=== PATIENT | female | born 1985 | race Caucasian/White ===

== ENCOUNTER 2017-10-01 12:43 | Observation (INO) ==
[2017-10-01] MEDS: NS 1000 ML 1,000 ML IV SCH (14:43)
[2017-10-01] MEDS: PEPCID 20 MG IV PREMIX* 20 MG/50 ML BAG IV SCH ×2 (14:44→21:13)
[2017-10-01] MEDS: LEVSIN/MAALOX/LIDOC VISC PO PRN (14:44)
[2017-10-01] MEDS: PROTONIX INJ 40 MG VIAL IVP SCH ×2 (14:45→21:13)
[2017-10-01] MEDS: ZOFRAN INJ 4 MG VIAL IVP PRN (14:45)
[2017-10-01 15:01] LABS: BASOPHILS # (AUTO) 0.1 X10^3/uL (0.0-0.1); BASOPHILS % (AUTO) 0.7 % (0.2-1.0); EOSINOPHILS # (AUTO) 0.2 x10^3/uL (0.0-0.2); EOSINOPHILS % (AUTO) 2.3 % (0.9-2.9); HEMATOCRIT 39.9 % (36.0-47.0); LYMPHOCYTES # (AUTO) 1.7 X10^3/uL (1.3-2.9); LYMPHOCYTES % (AUTO) 19.5 % (21.0-51.0); MEAN CORPUSCULAR HEMOGLOBIN 30.6 pg (27.0-34.0); MEAN CORPUSCULAR VOLUME 87.4 fL (80.0-100.0); MEAN PLATELET VOLUME 9.2 fL (7.4-11.0); MONOCYTES # (AUTO) 0.6 x10^3/uL (0.3-0.8); MONOCYTES % (AUTO) 7.2 % (0.0-13.0); NEUTROPHILS # (AUTO) 6.2 x10^3/uL (2.2-4.8); NEUTROPHILS % (AUTO) 70.3 % (42.0-75.0); PLATELET COUNT 253 X10^3/uL (150.0-450.0); RED BLOOD COUNT 4.56 X10^6/uL (3.5-5.4); RED CELL DISTRIBUTION WIDTH 12.6 % (11.6-16.5); WHITE BLOOD COUNT 8.8 X10^3/uL (3.6-10.0)
[2017-10-01 15:03] VITALS: BMI 28.3
[2017-10-01 15:18] LABS: ALANINE AMINOTRANSFERASE 34 Units/L (12-78); ALBUMIN 4.2 g/dL (3.4-5.0); ALKALINE PHOSPHATASE 62 Units/L (46-116); ASPARTATE AMINO TRANSFERASE 22 Units/L (15-37); BLOOD UREA NITROGEN 11 mg/dL (7-18); CALCIUM 8.4 mg/dL (8.5-10.1); CARBON DIOXIDE 20.5 mmol/L (21-32); CHLORIDE 102 mmol/L (98-107); CREATININE 0.83 mg/dL (0.55-1.02); LIPASE 120 Units/L (73-393); SERUM PREGNANCY TEST, QUAL NEGATIVE <10 mIU/mL; SODIUM 138 mmol/L (136-145); TOTAL PROTEIN 7.9 g/dL (6.4-8.2); eGFR NON BLACK RACES > 60 (>60)
[2017-10-01] MEDS ORDERED: DEMEROL INJ ONE (15:20)
[2017-10-01] MEDS: DEMEROL INJ IVP PRN (15:24)
--- NOTE | 2017-10-01 15:28 | DR.UPDATE ---
H&P Update History and Physical Update: PRESENTED TODAY FOR ABDOMINAL PAIN, NAUSEA, AND VOMITING. PATIENT WAS ADMITTED FOR FURTHER EVALUATION AND TREATMENT. A H&P WAS COMPLETED PRIOR TO ADMISSION. PATIENT HAS BEEN SEEN AND EXAMINED WITH NO CHANGES NOTED TO H&P. Changes noted: NO Yes with the following:
[2017-10-01] MEDS ORDERED: K-LYTE EFFERVESCENT PO PRN (17:53)
[2017-10-01] MEDS ORDERED: POTASSIUM CHL 40 MEQ/NS 0.45% 500 ML IV PRN (17:53)
[2017-10-01] MEDS ORDERED: K-RIDER 10 MEQ/NS 100 ML 10 MEQ/100 ML BAG IV PRN (17:53)
[2017-10-01] MEDS ORDERED: POTASSIUM CHLORIDE LIQ 20 MEQ UDC PO PRN (17:53)
[2017-10-01] MEDS ORDERED: POTASSIUM CHL 60 MEQ/NS 0.45% 500 ML IV PRN (17:53)
--- NOTE | 2017-10-01 18:10 | US ---
Gallbladder sonogram Indication: Abdominal pain Comparison: None available Technique: Multiple portillo scale and color flow Doppler images of the right upper quadrant were obtaine d. Findings: The gallbladder fails to demonstrate evidence for cholelithiasis or layering sludge.No pericholecysti c fluid or gallbladder wall thickening can be observed. The common bile duct is unremarkable measuring 3 mm. The visualized liver demonstrates no focal hepatic lesion or abnormal echotexture. IMPRESSION: Normal gallbladder sonogram. Reported By:
[2017-10-01 18:47] LABS: BILIRUBIN,URINE NEGATIVE (NEGATIVE); BLOOD/HEMOGLOBIN,URINE NEGATIVE (NEGATIVE); GLUCOSE, URINE NEGATIVE (NEGATIVE); KETONES,URINE 3+ (NEGATIVE); LEUKOCYTE ESTERASE ,URINE 2+ (NEGATIVE); NITRITES,URINE NEGATIVE (NEGATIVE); PROTEIN,URINE NEGATIVE (NEGATIVE); UROBILINOGEN,URINE NORMAL (NORMAL)
[2017-10-01 19:00] LABS: APPEARANCE,URINE HAZY (CLEAR); BACTERIA,URINE 1+ /HPF (NEGATIVE); COLOR,URINE YELLOW (YELLOW); RBC,URINE 0-2 /HPF (NONE SEEN); SQUAMOUS EPITHELIAL CELL,UR MODERATE /HPF (NEGATIVE)
[2017-10-01] MEDS ORDERED: TYLENOL 325 MG TAB PO PRN (22:47)
[2017-10-02] MEDS: NS 1000 ML 1,000 ML IV SCH ×4 (02:00→20:58)
[2017-10-02 06:02] LABS: BASOPHILS % (AUTO) 0.5 % (0.2-1.0); EOSINOPHILS # (AUTO) 0.3 x10^3/uL (0.0-0.2); EOSINOPHILS % (AUTO) 4.6 % (0.9-2.9); HEMATOCRIT 33.4 % (36.0-47.0); HEMOGLOBIN 11.7 g/dL (12.0-16.0); LYMPHOCYTES # (AUTO) 2.1 X10^3/uL (1.3-2.9); LYMPHOCYTES % (AUTO) 36.9 % (21.0-51.0); MEAN CORPUSCULAR HEMOGLOBIN 30.9 pg (27.0-34.0); MEAN CORPUSCULAR VOLUME 88.4 fL (80.0-100.0); MEAN PLATELET VOLUME 9.5 fL (7.4-11.0); MONOCYTES # (AUTO) 0.5 x10^3/uL (0.3-0.8); MONOCYTES % (AUTO) 8.4 % (0.0-13.0); NEUTROPHILS # (AUTO) 2.9 x10^3/uL (2.2-4.8); NEUTROPHILS % (AUTO) 49.6 % (42.0-75.0); PLATELET COUNT 183 X10^3/uL (150.0-450.0); RED BLOOD COUNT 3.78 X10^6/uL (3.5-5.4); WHITE BLOOD COUNT 5.8 X10^3/uL (3.6-10.0)
[2017-10-02 06:20] LABS: ALANINE AMINOTRANSFERASE 24 Units/L (12-78); ALBUMIN 2.8 g/dL (3.4-5.0); ALKALINE PHOSPHATASE 44 Units/L (46-116); ASPARTATE AMINO TRANSFERASE 16 Units/L (15-37); BLOOD UREA NITROGEN 7 mg/dL (7-18); CALCIUM 7.9 mg/dL (8.5-10.1); CARBON DIOXIDE 21.5 mmol/L (21-32); CHLORIDE 109 mmol/L (98-107); COR CA(FOR HYPOALB) 8.9 mg/dL (8.5-10.1); CREATININE 0.67 mg/dL (0.55-1.02); SODIUM 141 mmol/L (136-145); TOTAL PROTEIN 5.6 g/dL (6.4-8.2); eGFR NON BLACK RACES > 60 (>60)
[2017-10-02] MEDS: PEPCID 20 MG IV PREMIX* 20 MG/50 ML BAG IV SCH ×2 (08:41→20:41)
[2017-10-02] MEDS: PROTONIX INJ 40 MG VIAL IVP SCH ×2 (08:41→20:41)
[2017-10-02] MEDS: CIPRO IV 400 MG PREMIX* 400 MG/200 ML IV.SOLN. IV SCH ×2 (09:48→20:41)
[2017-10-02] MEDS ORDERED: XYLOCAINE 2 % (PLAIN) ONE (13:17)
[2017-10-02] MEDS ORDERED: DIPRIVAN VIAL 20 ML ONE (13:17)
[2017-10-02] MEDS: LEVSIN/MAALOX/LIDOC VISC PO PRN (15:21)
[2017-10-02] MEDS: DEMEROL INJ IVP PRN (19:35)
[2017-10-02] MEDS: ZOFRAN INJ 4 MG VIAL IVP PRN (19:35)
[2017-10-02] MEDS ORDERED: PHENERGAN INJ 25 MG IVP PRN (20:40)
[2017-10-03 05:12] LABS: BASOPHILS % (AUTO) 0.6 % (0.2-1.0); EOSINOPHILS # (AUTO) 0.3 x10^3/uL (0.0-0.2); EOSINOPHILS % (AUTO) 5.8 % (0.9-2.9); HEMATOCRIT 33.3 % (36.0-47.0); HEMOGLOBIN 11.3 g/dL (12.0-16.0); LYMPHOCYTES # (AUTO) 1.8 X10^3/uL (1.3-2.9); LYMPHOCYTES % (AUTO) 36.9 % (21.0-51.0); MEAN CORPUSCULAR HEMOGLOBIN 30.5 pg (27.0-34.0); MEAN CORPUSCULAR HGB CONC 33.9 g/dL (33.0-35.0); MEAN CORPUSCULAR VOLUME 89.9 fL (80.0-100.0); MEAN PLATELET VOLUME 9.8 fL (7.4-11.0); MONOCYTES # (AUTO) 0.4 x10^3/uL (0.3-0.8); MONOCYTES % (AUTO) 8.7 % (0.0-13.0); NEUTROPHILS # (AUTO) 2.4 x10^3/uL (2.2-4.8); PLATELET COUNT 161 X10^3/uL (150.0-450.0); RED CELL DISTRIBUTION WIDTH 12.9 % (11.6-16.5); WHITE BLOOD COUNT 4.9 X10^3/uL (3.6-10.0)
[2017-10-03 05:31] LABS: ALANINE AMINOTRANSFERASE 22 Units/L (12-78); ALBUMIN 2.7 g/dL (3.4-5.0); ALKALINE PHOSPHATASE 42 Units/L (46-116); ASPARTATE AMINO TRANSFERASE 16 Units/L (15-37); BLOOD UREA NITROGEN 3 mg/dL (7-18); CALCIUM 7.8 mg/dL (8.5-10.1); CARBON DIOXIDE 24.2 mmol/L (21-32); CHLORIDE 110 mmol/L (98-107); COR CA(FOR HYPOALB) 8.8 mg/dL (8.5-10.1); CREATININE 0.65 mg/dL (0.55-1.02); SODIUM 142 mmol/L (136-145); TOTAL PROTEIN 5.4 g/dL (6.4-8.2); eGFR NON BLACK RACES > 60 (>60)
[2017-10-03] MEDS: PROTONIX INJ 40 MG VIAL IVP SCH ×2 (09:02→20:02)
[2017-10-03] MEDS: PEPCID 20 MG IV PREMIX* 20 MG/50 ML BAG IV SCH ×2 (09:02→20:01)
[2017-10-03] MEDS: NS 1000 ML 1,000 ML IV SCH ×2 (09:02→21:28)
[2017-10-03] MEDS: CIPRO IV 400 MG PREMIX* 400 MG/200 ML IV.SOLN. IV SCH ×2 (09:02→20:02)
--- NOTE | 2017-10-03 11:25 | NM ---
Nuclear medicine HIDA scan with ejection fraction Indication: Nausea and vomiting with right upper quadrant pain Comparison: Ultrasound dated 10/01/2017 Technique: Multiple scintigraphic images of the abdomen were obtained the intravenous administration of 5.5 mCi of technetium labeled Choletec. After oral administration of 8 oz of Ensure an estimated gallbladder ejection fraction was calculated based on the physiologic response of this infusion. Findings: Homogeneous uptake of radiotracer is seen throughout the liver. This intrabiliary ductal system is o bserved normally. The common hepatic and common bile duct grossly appear unremarkable with normal bi liary-bowel transit. The gallbladder is observed to fill normally. After oral administration of Ensure, a borderline low gallbladder ejection fraction of 33% (normal > 35%) is observed. IMPRESSION: 1. Normal hepatobiliary imaging scan. 2. Borderline decreased gallbladder ejection fraction. Reported By:
[2017-10-03] MEDS: DEMEROL INJ IVP PRN ×2 (14:36→22:31)
--- NOTE | 2017-10-03 22:25 | PCM.PROG ---
Progress Note - Progress Note for Day of Date: 10/02/17 - Subjective Subjective: WAS ADMITTED FOR ABDOMINAL PAIN AND REFRACTORY NAUSEA AND VOMITING. TODAY, SHE IS ALERT AND ORIENTED, LYING IN BED ON MORNING ROUNDS. SHE CONTINUES WITH DIFFUSE PAIN AND NAUSEA. ON EXAMINATION, HEART IS REGULAR IN RATE AND RHYTHM. BILATERAL LUNGS ARE CLEAR TO AUSCULTATION. ABDOMEN IS ROUND, SOFT, AND NOTED WITH MODERATE, DIFFUSE TENDERNESS TO PALPATION. BOWEL SOUNDS ARE NORMAL IN ALL QUADRANTS. HER VITALS TODAY ARE 98.0-72-18-98%-103/58. LABS WERE OBTAINED. ABNORMAL LAB VALUES INCLUDE THE FOLLOWING: HGB 11.7, HCT 33.4, CHLORIDE 109, CALCIUM 7.69, ALK PHOS 44, TOTAL PROTEIN 5.6, ALBUMIN 2.8. A URINALYSIS THAT WAS OBTAINED ON ADMISSION REVEALED WBC 3-5, RBC 0-2, BACTERIA 1+ , LEUKOCYTES 2+. GALLBLADDER US OBTAINED ON ADMISSION REVEALED NORMAL GALLBLADDER SONOGRAM. WE HAVE CONSULTED , [employer]. HE PLANS FOR AN EGD TODAY. WE ARE IN AGREEMENT WITH PLAN. WE WILL ALSO OBTAIN A HIDA SCAN IN THE MORNING. OTHERWISE, WE WILL START CIPRO 400MG IV Q12H. WE PLAN TO FOLLOW UP WITH AM LABS AND CONTINUE TO MONITOR PATIENT. - Past Medical Family Social History Past Med/Fam/Surg Hx: No changes since H&P Allergies: Allergies No Known Drug Allergies Allergy (Verified 10/01/17 15:13) - Review of Systems ROS: No change since H&P - Vital Signs and I&O's Vital Signs: Temperature 97.7 F Pulse Rate [Left Brachial] 58 Pulse Rate [Brachial] 61 Respiratory Rate 16 Blood Pressure [Left Arm] 117/68 O2 Sat by Pulse Oximetry 100 Intake and Output: Intake & Output 10/01/17 10/02/17 10/03/17 10/04/17 11:59 11:59 11:59 11:59 Intake Total 600 / 600 1600 / 1600 1660 / 1660 Output Total 1100 / 1100 Balance -500 / -500 1600 / 1600 1660 / 1660 - Physical Exam Oriented: Normal Eyes: Normal Ear: Normal Nose: Normal Throat: Normal Respiratory: Normal Cardiovascular: Normal. negative: S3, S4, Murmur : Normal Auscultation: Bowel Sounds: Normal Palpation: Normal Tenderness: Diffuse, Moderate. negative: Rebound, Guarding, Rigidity Skin: Normal Musculoskeletal: Normal Psychiatric: Normal Mood Description: Calm Affect: Normal Speech Pattern: Clear, Appropriate - Laboratory and Diagnostics Result Diagrams: 10/03/17 04:22 10/03/17 04:22 Labs: 10/01/17 18:16 Urine,Clean Catch Urine Culture - Final Laboratory WBC 4.9 X10^3/uL (3.6-10.0) 10/03/17 04:22 RBC 3.70 X10^6/uL (3.5-5.4) 10/03/17 04:22 Hgb 11.3 g/dL (12.0-16.0) L 10/03/17 04:22 Hct 33.3 % (36.0-47.0) L 10/03/17 04:22 MCV 89.9 fL (80.0-100.0) 10/03/17 04:22 MCH 30.5 pg (27.0-34.0) 10/03/17 04:22 MCHC 33.9 g/dL (33.0-35.0) 10/03/17 04:22 RDW 12.9 % (11.6-16.5) 10/03/17 04:22 Plt Count 161 X10^3/uL (150.0-450.0) 10/03/17 04:22 MPV 9.8 fL (7.4-11.0) 10/03/17 04:22 Neut % (Auto) 48.0 % (42.0-75.0) 10/03/17 04:22 Lymph % (Auto) 36.9 % (21.0-51.0) 10/03/17 04:22 [place] % (Auto) 8.7 % (0.0-13.0) 10/03/17 04:22 Eos % (Auto) 5.8 % (0.9-2.9) H 10/03/17 04:22 Baso % (Auto) 0.6 % (0.2-1.0) 10/03/17 04:22 Neut # (Auto) 2.4 x10^3/uL (2.2-4.8) 10/03/17 04:22 Lymph # (Auto) 1.8 X10^3/uL (1.3-2.9) 10/03/17 04:22 [place] # (Auto) 0.4 x10^3/uL (0.3-0.8) 10/03/17 04:22 Eos # (Auto) 0.3 x10^3/uL (0.0-0.2) H 10/03/17 04:22 Baso # (Auto) 0.0 X10^3/uL (0.0-0.1) 10/03/17 04:22 Absolute Nucleated RBC 0.1 /100WBC 10/03/17 04:22 Sodium 142 mmol/L (136-145) 10/03/17 04:22 Corrected Sodium TNP 10/03/17 04:22 Potassium 3.7 mmol/L (3.5-5.1) 10/03/17 04:22 Chloride 110 mmol/L (98-107) H 10/03/17 04:22 Carbon Dioxide 24.2 mmol/L (21-32) 10/03/17 04:22 BUN 3 mg/dL (7-18) L 10/03/17 04:22 Creatinine 0.65 mg/dL (0.55-1.02) 10/03/17 04:22 Est GFR (MDRD) Af Amer > 60 (>60) 10/03/17 04:22 Est GFR (MDRD) Non-Af > 60 (>60) 10/03/17 04:22 Glucose 74 mg/dL (65-99) 10/03/17 04:22 Calcium 7.8 mg/dL (8.5-10.1) L 10/03/17 04:22 Corrected Calcium 8.8 mg/dL (8.5-10.1) 10/03/17 04:22 Magnesium 1.8 mg/dL (1.7-2.9) 10/01/17 14:52 Total Bilirubin 0.30 mg/dL (0.2-1.0) 10/03/17 04:22 AST 16 Units/L (15-37) 10/03/17 04:22 ALT 22 Units/L (12-78) 10/03/17 04:22 Alkaline Phosphatase 42 Units/L (46-116) L 10/03/17 04:22 Total Protein 5.4 g/dL (6.4-8.2) L 10/03/17 04:22 Albumin 2.7 g/dL (3.4-5.0) L 10/03/17 04:22 Globulin 2.7 g/dL (2.5-4.5) 10/03/17 04:22 Albumin/Globulin Ratio 1.0 Ratio (1.1-2.1) L 10/03/17 04:22 Lipase 120 Units/L (73-393) 10/01/17 14:52 HCG, Qual Negative <10 mIU/mL 10/01/17 14:52 Specimen Type Clean catch urine 10/01/17 18:16 Urine Color Yellow (YELLOW) 10/01/17 18:16 Urine Appearance Hazy (CLEAR) 10/01/17 18:16 Urine pH 8.0 (5.0 - 8.0) 10/01/17 18:16 Ur Specific [place] 1.010 (1.000-1.030) 10/01/17 18:16 Urine Protein Negative (NEGATIVE) 10/01/17 18:16 Urine Glucose (UA) Negative (NEGATIVE) 10/01/17 18:16 Urine Ketones 3+ (NEGATIVE) 10/01/17 18:16 Urine Occult Blood Negative (NEGATIVE) 10/01/17 18:16 Urine Nitrite Negative (NEGATIVE) 10/01/17 18:16 Urine Bilirubin Negative (NEGATIVE) 10/01/17 18:16 Urine Urobilinogen Normal (NORMAL) 10/01/17 18:16 Ur Leukocyte Esterase 2+ (NEGATIVE) 10/01/17 18:16 Urine RBC 0-2 /HPF (NONE SEEN) 10/01/17 18:16 Urine WBC 3-5 /HPF (NONE SEEN) 10/01/17 18:16 Ur Squamous Epith Cells Moderate /HPF (NEGATIVE) 10/01/17 18:16 Urine Bacteria 1+ /HPF (NEGATIVE) 10/01/17 18:16 Ur Culture Indicated? Yes/culture set up 10/01/17 18:16 Tissue Pathology To follow 10/02/17 13:48 - Plan (1) Abdominal pain Status: Acute Qualifiers: Abdominal location: generalized Qualified Code(s): R10.84 - Generalized abdominal pain Plan: EGD TODAY, GI COCKTAIL, PEPCID IV, PROTONIX IV, DEMEROL IV, CONTINUE TO MONITOR (2) Refractory nausea and vomiting Status: Acute Plan: ZOFRAN IV, PHENERGAN IV, CONTINUE TO MONITOR (3) Urinary tract infection Status: Acute Qualifiers: Urinary tract infection type: acute cystitis Hematuria presence: without hematuria Qualified Code(s): N30.00 - Acute cystitis without hematuria Plan: CIPRO 400MG IV Q12H, CONTINUE TO MONITOR
--- NOTE | 2017-10-03 22:36 | PCM.PROG ---
Progress Note - Progress Note for Day of Date: 10/03/17 - Subjective Subjective: WAS ADMITTED FOR ABDOMINAL PAIN AND REFRACTORY NAUSEA AND VOMITING. TODAY, SHE IS ALERT AND ORIENTED, LYING IN BED ON MORNING ROUNDS. SHE CONTINUES WITH DIFFUSE PAIN AND NAUSEA, BUT REPORTS SLIGHT IMPROVEMENT SINCE YESTERDAY. ON EXAMINATION, HEART IS REGULAR IN RATE AND RHYTHM. BILATERAL LUNGS ARE CLEAR TO AUSCULTATION. ABDOMEN IS ROUND, SOFT, AND NOTED WITH MILD, DIFFUSE TENDERNESS TO PALPATION. BOWEL SOUNDS ARE NORMAL IN ALL QUADRANTS. HER VITALS TODAY ARE 98.4-52-16-100%-102/57. LABS WERE OBTAINED. SHE IS HEMODYNAMICALLY STABLE. GALLBLADDER US OBTAINED ON ADMISSION REVEALED NORMAL GALLBLADDER SONOGRAM. TOOK PATIENT DOWN FOR AN EGD YESTERDAY. EGD REVEALED EROSIVE GASTRITIC, ANTRAL GASTRIC ULCER WITH A CLEAN WHITE BASE, DISTAL ESOPHAGITIS WITH SLIGHTLY IRREGULAR Z-LINE. TODAY, WE WILL OBTAIN A HIDA SCAN. OTHERWISE, WE PLAN TO FOLLOW UP WITH AM LABS AND CONTINUE TO MONITOR PATIENT. - Past Medical Family Social History Past Med/Fam/Surg Hx: No changes since H&P Allergies: Allergies No Known Drug Allergies Allergy (Verified 10/01/17 15:13) - Review of Systems ROS: No change since H&P - Vital Signs and I&O's Vital Signs: Temperature 97.7 F Pulse Rate [Left Brachial] 58 Pulse Rate [Brachial] 61 Respiratory Rate 16 Blood Pressure [Left Arm] 117/68 O2 Sat by Pulse Oximetry 100 Intake and Output: Intake & Output 10/01/17 10/02/17 10/03/17 10/04/17 11:59 11:59 11:59 11:59 Intake Total 600 / 600 1600 / 1600 1660 / 1660 Output Total 1100 / 1100 Balance -500 / -500 1600 / 1600 1660 / 1660 - Physical Exam Oriented: Normal Eyes: Normal Ear: Normal Nose: Normal Throat: Normal Respiratory: Normal Cardiovascular: Normal. negative: S3, S4, Murmur : Normal Auscultation: Bowel Sounds: Normal Tenderness: Diffuse, Moderate. negative: Rebound, Guarding, Rigidity Skin: Normal Musculoskeletal: Normal Psychiatric: Normal Mood Description: Calm Affect: Normal Speech Pattern: Clear, Appropriate - Laboratory and Diagnostics Result Diagrams: 10/03/17 04:22 10/03/17 04:22 Labs: 10/01/17 18:16 Urine,Clean Catch Urine Culture - Final Laboratory WBC 4.9 X10^3/uL (3.6-10.0) 10/03/17 04:22 RBC 3.70 X10^6/uL (3.5-5.4) 10/03/17 04:22 Hgb 11.3 g/dL (12.0-16.0) L 10/03/17 04:22 Hct 33.3 % (36.0-47.0) L 10/03/17 04:22 MCV 89.9 fL (80.0-100.0) 10/03/17 04:22 MCH 30.5 pg (27.0-34.0) 10/03/17 04:22 MCHC 33.9 g/dL (33.0-35.0) 10/03/17 04:22 RDW 12.9 % (11.6-16.5) 10/03/17 04:22 Plt Count 161 X10^3/uL (150.0-450.0) 10/03/17 04:22 MPV 9.8 fL (7.4-11.0) 10/03/17 04:22 Neut % (Auto) 48.0 % (42.0-75.0) 10/03/17 04:22 Lymph % (Auto) 36.9 % (21.0-51.0) 10/03/17 04:22 [place] % (Auto) 8.7 % (0.0-13.0) 10/03/17 04:22 Eos % (Auto) 5.8 % (0.9-2.9) H 10/03/17 04:22 Baso % (Auto) 0.6 % (0.2-1.0) 10/03/17 04:22 Neut # (Auto) 2.4 x10^3/uL (2.2-4.8) 10/03/17 04:22 Lymph # (Auto) 1.8 X10^3/uL (1.3-2.9) 10/03/17 04:22 [place] # (Auto) 0.4 x10^3/uL (0.3-0.8) 10/03/17 04:22 Eos # (Auto) 0.3 x10^3/uL (0.0-0.2) H 10/03/17 04:22 Baso # (Auto) 0.0 X10^3/uL (0.0-0.1) 10/03/17 04:22 Absolute Nucleated RBC 0.1 /100WBC 10/03/17 04:22 Sodium 142 mmol/L (136-145) 10/03/17 04:22 Corrected Sodium TNP 10/03/17 04:22 Potassium 3.7 mmol/L (3.5-5.1) 10/03/17 04:22 Chloride 110 mmol/L (98-107) H 10/03/17 04:22 Carbon Dioxide 24.2 mmol/L (21-32) 10/03/17 04:22 BUN 3 mg/dL (7-18) L 10/03/17 04:22 Creatinine 0.65 mg/dL (0.55-1.02) 10/03/17 04:22 Est GFR (MDRD) Af Amer > 60 (>60) 10/03/17 04:22 Est GFR (MDRD) Non-Af > 60 (>60) 10/03/17 04:22 Glucose 74 mg/dL (65-99) 10/03/17 04:22 Calcium 7.8 mg/dL (8.5-10.1) L 10/03/17 04:22 Corrected Calcium 8.8 mg/dL (8.5-10.1) 10/03/17 04:22 Magnesium 1.8 mg/dL (1.7-2.9) 10/01/17 14:52 Total Bilirubin 0.30 mg/dL (0.2-1.0) 10/03/17 04:22 AST 16 Units/L (15-37) 10/03/17 04:22 ALT 22 Units/L (12-78) 10/03/17 04:22 Alkaline Phosphatase 42 Units/L (46-116) L 10/03/17 04:22 Total Protein 5.4 g/dL (6.4-8.2) L 10/03/17 04:22 Albumin 2.7 g/dL (3.4-5.0) L 10/03/17 04:22 Globulin 2.7 g/dL (2.5-4.5) 10/03/17 04:22 Albumin/Globulin Ratio 1.0 Ratio (1.1-2.1) L 10/03/17 04:22 Lipase 120 Units/L (73-393) 10/01/17 14:52 HCG, Qual Negative <10 mIU/mL 10/01/17 14:52 Specimen Type Clean catch urine 10/01/17 18:16 Urine Color Yellow (YELLOW) 10/01/17 18:16 Urine Appearance Hazy (CLEAR) 10/01/17 18:16 Urine pH 8.0 (5.0 - 8.0) 10/01/17 18:16 Ur Specific [place] 1.010 (1.000-1.030) 10/01/17 18:16 Urine Protein Negative (NEGATIVE) 10/01/17 18:16 Urine Glucose (UA) Negative (NEGATIVE) 10/01/17 18:16 Urine Ketones 3+ (NEGATIVE) 10/01/17 18:16 Urine Occult Blood Negative (NEGATIVE) 10/01/17 18:16 Urine Nitrite Negative (NEGATIVE) 10/01/17 18:16 Urine Bilirubin Negative (NEGATIVE) 10/01/17 18:16 Urine Urobilinogen Normal (NORMAL) 10/01/17 18:16 Ur Leukocyte Esterase 2+ (NEGATIVE) 10/01/17 18:16 Urine RBC 0-2 /HPF (NONE SEEN) 10/01/17 18:16 Urine WBC 3-5 /HPF (NONE SEEN) 10/01/17 18:16 Ur Squamous Epith Cells Moderate /HPF (NEGATIVE) 10/01/17 18:16 Urine Bacteria 1+ /HPF (NEGATIVE) 10/01/17 18:16 Ur Culture Indicated? Yes/culture set up 10/01/17 18:16 Tissue Pathology To follow 10/02/17 13:48 - Plan (1) Abdominal pain Status: Acute Qualifiers: Abdominal location: generalized Qualified Code(s): R10.84 - Generalized abdominal pain Plan: EGD TODAY, GI COCKTAIL, PEPCID IV, PROTONIX IV, DEMEROL IV, CONTINUE TO MONITOR (2) Refractory nausea and vomiting Status: Acute Plan: ZOFRAN IV, PHENERGAN IV, CONTINUE TO MONITOR (3) Urinary tract infection Status: Acute Qualifiers: Urinary tract infection type: acute cystitis Hematuria presence: without hematuria Qualified Code(s): N30.00 - Acute cystitis without hematuria Plan: CIPRO 400MG IV Q12H, CONTINUE TO MONITOR
[2017-10-04 05:16] LABS: BASOPHILS % (AUTO) 0.5 % (0.2-1.0); EOSINOPHILS # (AUTO) 0.4 x10^3/uL (0.0-0.2); EOSINOPHILS % (AUTO) 6.2 % (0.9-2.9); HEMATOCRIT 33.4 % (36.0-47.0); HEMOGLOBIN 11.5 g/dL (12.0-16.0); LYMPHOCYTES # (AUTO) 2.1 X10^3/uL (1.3-2.9); LYMPHOCYTES % (AUTO) 31.6 % (21.0-51.0); MEAN CORPUSCULAR HEMOGLOBIN 30.6 pg (27.0-34.0); MEAN CORPUSCULAR HGB CONC 34.5 g/dL (33.0-35.0); MEAN CORPUSCULAR VOLUME 88.8 fL (80.0-100.0); MONOCYTES # (AUTO) 0.5 x10^3/uL (0.3-0.8); MONOCYTES % (AUTO) 7.7 % (0.0-13.0); NEUTROPHILS # (AUTO) 3.6 x10^3/uL (2.2-4.8); PLATELET COUNT 164 X10^3/uL (150.0-450.0); RED BLOOD COUNT 3.76 X10^6/uL (3.5-5.4); WHITE BLOOD COUNT 6.7 X10^3/uL (3.6-10.0)
[2017-10-04 05:27] LABS: ALANINE AMINOTRANSFERASE 22 Units/L (12-78); ALBUMIN 2.8 g/dL (3.4-5.0); ALKALINE PHOSPHATASE 43 Units/L (46-116); ASPARTATE AMINO TRANSFERASE 15 Units/L (15-37); BLOOD UREA NITROGEN 3 mg/dL (7-18); CARBON DIOXIDE 23.5 mmol/L (21-32); CHLORIDE 109 mmol/L (98-107); CREATININE 0.66 mg/dL (0.55-1.02); SODIUM 141 mmol/L (136-145); TOTAL PROTEIN 5.5 g/dL (6.4-8.2); eGFR NON BLACK RACES > 60 (>60)
[2017-10-04 08:07] VITALS: BP 103/58
[2017-10-04] MEDS: CIPRO IV 400 MG PREMIX* 400 MG/200 ML IV.SOLN. IV SCH (08:14)
[2017-10-04] MEDS: PROTONIX INJ 40 MG VIAL IVP SCH (08:14)
[2017-10-04] MEDS: PEPCID 20 MG IV PREMIX* 20 MG/50 ML BAG IV SCH (08:14)
--- NOTE | 2017-10-22 23:07 | DR.CARTERD ---
- Discharge Summary for: Discharge Summary for Date of:: 10/04/17 - Admission Date Date of Admission: 10/01/17 - Admission Diagnoses Admission Diagnosis: (1) Abdominal pain (2) Refractory nausea and vomiting (3) Urinary tract infection - Discharge Date Discharge Date: 10/04/17 - Discharge Diagnoses Discharge Diagnosis: (1) Abdominal pain (2) Refractory nausea and vomiting (3) Urinary tract infection - Hospital Course Hospital Course: Ms. Adams presented to the hospital as a direct admission after a follow up visit in PCP's office. Patient was seen one day prior with reports of nausea and vomiting and was started on Zantac, Dexilant and GI cocktail with worsening in symptoms. Associated symptoms included fatigue, malaise, poor appetite, indigestion and anxiety. Patient noted with right upper quadrant and epigastric abdominal tenderness on palpation of abdomen. Patient admitted to the hospital as observation for further evaluation and treatment. Abnormal Labs : Lymph% 19.5, Neut# 6.2, Potassium 3.3, Carbon Dioxide 20.5, Calcium 8.4. Urinalysis: Hazy, Ketones 3+, Leuk Est 2+, RBC 0-2, WBC 3-5, Bacteria 1+, Culture obtained. Gallbladder Ultrasound: Normal gallbladder sonogram. On day two, she continued with diffuse pain and nausea. Abdomen was soft, round, and noted with moderate, diffuse tenderness to palpation. Bowel sounds normal in all quadrants. Her vitals were 98.0-72-18-98%-103/58. Abnormal labs were: Hgb 11.7, Hct 33.4, Chl 109, Calcium 7.69, Alk Phos 44, Tot Protein 5.6, Albumin 2.8. We started Cipro 400mg IV bid. On day three, she continued with diffuse abdominal pain and nausea. She reported slight improvement. Dr. Lucas was consulted and he took her to OR for and EGD. It reported erosive gastritic, antral gastric ulcer with a clean white base, distal esophagitis with slightly irregular z-line. On day four, we obtained a HIDA scan to further evaluate gallbladder. It reported normal hepatobiliary imaging scan; borderline decreased gallbladder ejection fraction. Vital signs stable, afebrile. Labs wnl. Patient reported she was feeling better. She reported improvement in abdominal pain, denied nausea, vomiting. We planned for discharge. Instructions for medications and follow up were discussed with patient and family, both voiced understanding. Patient discharged home in stable condition with family. - Discharge Medications Discharge Medications: Home Medication List NK 10/01/17 [History] famotidine [Pepcid] 40 mg PO BID #60 tab 10/04/17 [Rx] pantoprazole [Protonix] 40 mg PO BID #60 tab 10/04/17 [Rx] Prescriptions: famotidine [Pepcid] Jeet Norton pantoprazole [Protonix] Jeet Norton - Discharge Disposition Discharge Disposition: Patient is to follow up in our office in one week.
== END 2017-10-04 11:30 | disposition home or self-care (01) ==
LOC: OBS → MED/SURG 14:32
PROVIDERS: ADMIT Internal Medicine; ATTEND Internal Medicine
DX: N30.00 Acute cystitis without hematuria; K25.9 Gastric ulcer, unspecified as acute or chronic, without hemorrhage or perforation; R10.84 Generalized abdominal pain; K20.8 Other esophagitis; R10.13 Epigastric pain; R11.2 Nausea with vomiting, unspecified; R51 Headache
CPT/HCPCS: 36415; 76705; 78227; 80053; 81001; 83690; 83735; 84703; 85025; 86677; 87086; A4216; A4222; A9537; C9113; S0028; A4217; G0378; J0744; J2175; J2405; J2550; J2704; J3480; J3490; J7030; J8499